=== PATIENT | male | born 1950 | race Caucasian/White ===

== ENCOUNTER 2017-06-26 10:02 | Emergency (ER) | payer MEDICARE ==
[~2017-06-26] VITALS: Ht 185.4 cm; Wt 68.4 kg
[~2017-06-26 10:02] MED LIST: BEE POLLEN PO; BLUE500T PO; DOXA2TAB9 PO; FINA5TAB4 PO; GARLIC PO; HYDR-3240 PO; MULT-6 PO; PHEN-418 PO; VITAMIN B-12 PO; VITAMIN C PO; VITAMIN D PO
[2017-06-26] MEDS ORDERED: [UNRECOGNIZED DRUG - REMARK] PO (11:13)
[2017-06-26 11:16] LABS: BASOPHILS # (AUTO) 0.03 x10^3/uL (0-0.1); BASOPHILS % (AUTO) 1 % (0-1); EOSINOPHILS # (AUTO) 0.11 x10^3/uL (0-0.4); EOSINOPHILS % (AUTO) 2 % (1-7); LYMPHOCYTES # (AUTO) 1.07 x10^3/uL (1-3.4); LYMPHOCYTES % (AUTO) 20 % (22-44); MD NO; MEAN CORPUSCULAR HGB CONC 33.5 g/dL (33.2-36.2); MEAN CORPUSCULAR VOLUME 83.6 fL (81-97); MEAN PLATELET VOLUME 8.1 fL (7.4-10.4); MONOCYTES # (AUTO) 0.39 x10^3/uL (0.2-0.8); MONOCYTES % (AUTO) 7 % (2-9); NEUTROPHILS # (AUTO) 3.88 x10^3/uL (1.8-6.8); NEUTROPHILS % (AUTO) 71 % (42-75); PLATELET COUNT 197 x10^3/uL (130-400); RED BLOOD COUNT 4.67 x10^6/uL (4.38-5.82); RED CELL DISTRIBUTION WIDTH 15.1 % (9.4-14.8)
[2017-06-26 11:25] LABS: ALBUMIN 3.7 g/dL (3.4-5.0); ANION GAP 6 mmol/L (5-15); CALCIUM 8.7 mg/dL (8.5-10.1); CHLORIDE 102 mmol/L (98-107); CREATININE 0.88 mg/dL (0.7-1.3)
[2017-06-26 11:28] LABS: TROPONIN I < 0.015 ng/mL (0.000-0.045)
[2017-06-26 13:25] VITALS: BP 123/78
== END 2017-06-26 13:27 | disposition home or self-care (01) ==
LOC: ED 12:39
DX: M94.0 Chondrocostal junction syndrome [Tietze] (principal); R09.1 Pleurisy
CPT/HCPCS: 36415; 71046; 80048; 82040; 84484; 85025; 93005; 99285